=== PATIENT | female | born 1975 | race Asian ===

== ENCOUNTER 2016-08-07 12:13 | Emergency (ER) | payer BC ==
[~2016-08-07] VITALS: Ht 157.5 cm; Wt 54.4 kg
[~2016-08-07 12:13] MED LIST: NKM
[2016-08-07 12:24] VITALS: BP 129/78
[2016-08-07] MEDS ORDERED: LORazepam 0.5mg tab ORAL ONE (12:45)
--- NOTE | 2016-08-07 12:46 | Emergency Room Report ---
History of Present Illness General Chief Complaint: General Complaint Source: Patient, Family Member Present Illness HPI 40 YO F BIBEMS from [facility] for "panic attack." EMS endorses patient c/o "funny skin sensation" and nausea. Patient states she was at [facility] with daughter, and skin started feeling funny/warm. She denies rash. States she felt like she had trouble breathing. Denies numbness/tingling to extremities, emily-oral numbness, chest pain. [place] a little nauseated. Had sushi for breakfast hours earlier, denies anyone else at the [facility]. Denies known PMHx or known allergies to food, medicine. Has felt healthy otherwise. No history of psych problems or panic/anxiety. Denies SI, HI. States all is well at home. Allergies: Coded Allergies: No Known Allergies (Unverified , 08/07/16) Patient History Past Medical History: none Past Surgical History: none Pertinent Family History: none Social History: Denies: alcohol use, drug use, smoking Now: No Immunizations: UTD Reviewed Nursing Documentation: PMH: Agreed, PSxH: Agreed Nursing Documentation-PMH Past Medical History: No Stated History Review of Systems All Other Systems: negative except mentioned in HPI Physical Exam Vital Signs Date Time Temp Pulse Resp B/P Pulse Ox O2 Delivery O2 Flow Rate FiO2 08/07/16 12:07 97.9 78 16 110/70 98 Room Air Sp02 EP Interpretation: reviewed, normal General Appearance: normal inspection, well appearing, alert, mild distress, other - very anxious Head: normocephalic, atraumatic Eyes: bilateral eye EOMI, bilateral eye PERRL ENT: normal ENT inspection, hearing grossly normal, normal voice Neck: normal inspection, full range of motion, supple, no bony tend Respiratory: normal inspection, lungs clear, normal breath sounds, no respiratory distress, no retraction, no wheezing Cardiovascular #1: regular rate, rhythm, no edema Gastrointestinal: normal inspection, normal bowel sounds, non tender, soft, no guarding, no hernia Genitourinary: no CVA tenderness Musculoskeletal: normal inspection, back normal, normal range of motion, Dell' s Sign negative Neurologic: normal inspection, alert, oriented x3, responsive, hub lead III-XII nml as tested, motor strength/tone normal, speech normal Psychiatric: normal inspection, judgement/insight normal, mood/affect normal Skin: normal inspection, normal color, no rash Medical Decision Making Diagnostic Impression: Primary Impression: Encounter for generalized patient complaints Additional Impressions: Nausea & vomiting Qualified Codes: R11.2 - Nausea with vomiting, unspecified Panic attack ER Course 40 YO F with vague symptoms of skin disturbance, nausea. VSS. Afebrile No rash or obvious signs of allergic reaction Possible panic/anxiety attack but no known psych history However patient appears very distracted by her caring for her daughter in the room, constantly interrupting HPI to watch her daughter or tell her that the daughter needs to nap/eat/etc Will tx nausea with zofrn and try trial of low dose ativan for suspicion for anxiety attack Last Vital Signs Date Time Temp Pulse Resp B/P Pulse Ox O2 Delivery O2 Flow Rate FiO2 08/07/16 12:24 63 24 129/78 100 Room Air 08/07/16 12:07 97.9 Status: improved Reevaluation Impression Patient unable to tolerate PO meds - vomited them up. IV line placed with IV reglan, IVF NS hydration UA: ?UTI. + WBCs Endorsed to Dr Guidry to reassess patient after hydration and determine disposition Disposition: HOME, SELF-CARE Scripts Ondansetron (Zofran) 4 Mg Tablet 4 MG ORAL Q6H Y for Nausea & Vomiting, #30 TAB 0 Refills Prov: Kenneth Guidry 08/07/16 Nitrofurantoin Monohyd/M-Cryst* (MACROBID 100 MG*) 100 Mg Capsule 100 MG ORAL EVERY 12 HOURS, #14 CAP Prov: Kenneth Guidry 08/07/16 ALYSHA GORDON M.D. Aug 07, 2016 12:46
[2016-08-07] MEDS ORDERED: Famotidine 20 MG/ 2ML VIAL IVP ONE (13:00)
[2016-08-07] MEDS ORDERED: Metoclopramide 10mg/2ml Inj IVP ONE (13:00)
[2016-08-07 13:27] LABS: APPEARANCE,URINE CLEAR
[2016-08-07 13:28] LABS: KETONES,URINE 2+ (NEGATIVE); LEUKOCYTE ESTERASE ,URINE 1+ (NEGATIVE); NITRITE,URINE NEGATIVE (NEGATIVE); PROTEIN,URINE 1+ (NEGATIVE); UROBILINOGEN,URINE NORMAL MG/DL (0.0-1.0)
[2016-08-07 13:34] LABS: BACTERIA,URINE FEW /HPF; SQUAMOUS EPITHELIAL CELL,UR FEW /LPF (NONE/OCC)
[2016-08-07 13:42] VITALS: BP 100/64
[2016-08-07] MEDS ORDERED: LORazepam Inj 2mg/ml 1ml IV ONE (13:45)
[2016-08-07 14:26] VITALS: BP 93/58
[2016-08-07] MEDS ORDERED: NITROFURANTOIN100 M2 ORAL (15:09)
[2016-08-07] MEDS ORDERED: ZOFRAN4 MG ORAL (15:09)
[2016-08-07 15:26] VITALS: BP 101/64
== END 2016-08-07 15:30 | disposition home or self-care (01) ==
LOC: EDBD 12:13 → EMR 14:20
DX: R11.2 Nausea with vomiting, unspecified (principal); F41.0 Panic disorder [episodic paroxysmal anxiety]
CPT/HCPCS: 81003; 81025; 96361; 96374; 96375; 99284; J2765; S0028